=== PATIENT | male | born 1995 | race Caucasian/White ===

== ENCOUNTER 2020-06-18 19:57 | Emergency (ER) | payer OTHER ==
[2020-06-18] MEDS ORDERED: KETAMINE 40 MG in SODIUM CHLORIDE 0.9% 100ML 100 ML IVP STA (20:21)
--- NOTE | 2020-06-18 20:25 | ED Physician Documentation ---
PD HPI MHE - Stated complaint Stated Complaint: SI - Chief complaint Chief Complaint: MHE - History obtained from History obtained from: Patient - Additional information Additional information: 25-year-old gentleman who is active duty in the [employer] has had a tough year. 2 friends have , most recently his roommate the day before and he has been having a lot of trouble dealing with it. He is under no treatment, no counseling or medications. He has longstanding suicidal ideation, vague thoughts without specific plan. He denies drug use but does use alcohol daily. No withdrawal symptoms. No current plan. Review of Systems Ten Systems: 10 systems reviewed and negative Constitutional: denies: Fever, Chills Nose: denies: Rhinorrhea / runny nose, Congestion Throat: denies: Sore throat Cardiac: denies: Chest pain / pressure, Palpitations Respiratory: denies: Dyspnea, Cough PD PAST MEDICAL HISTORY - Past Medical History Past Medical History: Yes Psych: Depression - Past Surgical History Past Surgical History: No - Present Medications Home Medications: Ambulatory Orders Medication Instructions Recorded Confirmed LORazepam [Ativan] 1 mg PO QPM PRN #10 tablet 06/18/20 - Allergies Allergies/Adverse Reactions: Allergies Allergy/AdvReac Type Severity Reaction Status Date / Time No Known Drug Allergies Allergy Verified 06/18/20 20:08 - Social History Does the pt smoke?: Yes Smoking Status: Current every day smoker Does the pt drink ETOH?: Yes ETOH Use: Beer Does the pt have substance abuse?: No - Immunizations Immunizations are current?: Yes PD ED PE NORMAL - Vitals Vital signs reviewed: Yes - General General: Alert and oriented X 3, No acute distress - HEENT HEENT: PERRL, EOMI - Neck Neck: Supple, no meningeal sign, No bony TTP - Cardiac Cardiac: RRR, No murmur - Respiratory Respiratory: No respiratory distress, Clear bilaterally - Abdomen Abdomen: Normal bowel sounds, Soft, Non tender - Back Back: No CVA TTP, No spinal TTP - Derm Derm: Normal color, Warm and dry - Extremities Extremities: No edema, No calf tenderness / cord - Neuro Neuro: Alert and oriented X 3, No motor deficit, No sensory deficit, Normal speech Results - Vitals Vitals: Vital Signs - 24 hr 06/18/20 06/18/20 06/18/20 20:00 20:22 20:49 Temperature 36.4 C L 36.4 C L Heart Rate 84 84 80 Respiratory 18 18 18 Rate Blood Pressure 154/98 H 154/98 H 143/78 H O2 Saturation 98 98 98 Oxygen O2 Source Room air PD MEDICAL DECISION MAKING - ED course ED course: He presents with suicidal ideation but no plan, he contracts with me for safety. I did offer a potential transfer to [facility] for expedited inpatient care which he declined. There is no indication for involuntary assisted. We agreed on after discussion and after he contracted for safety was an infusion of ketamine here, then something to help him sleep when he because he is having trouble with that. He will follow-up with the [facility] for psychiatric care and counseling on Saturday. 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 I discussed the fact that they do have the option of compelling him for treatment at [facility] but I did not think that was not necessary based on his presenting complaints. He wanted us to keep him in the emergency department all night to make sure the house was safe, I discussed with him the that was not necessarily a great use of an emergency department bed if it was all night and he will try to arrange for [employer] watch. Departure - Departure Disposition: 01 Home, Self Care Clinical Impression: Suicidal ideation Depression Qualifiers: Depression Type: major depressive disorder Major depression recurrence: single episode Active/Remission status: currently active Major depression episode severity: moderate Qualified Code(s): F32.1 - Major depressive disorder, single episode, moderate Condition: Good Record reviewed to determine appropriate education?: Yes Instructions: ED Depression Prescriptions: LORazepam [Ativan] 1 mg PO QPM PRN #10 tablet PRN Reason: Insomnia Comments: Return if worsening or if you feel like you might ask on your suicidal ideation. Do not drink or drive tonight, do not drink with the lorazepam. Follow-up with the [facility] on Saturday for further evaluation and treatment, specifically psychiatric evaluation and initiation of counseling. Phone number for the mental health clinic on [facility] is [phone], call first thing Saturday.
[2020-06-18] MEDS ORDERED: KETAMINE 500 MG/10 ML VIAL ONE (20:39)
[2020-06-18] MEDS ORDERED: LORazepam 1 MG TABLET PO STA (21:30)
[2020-06-18 23:00] VITALS: BP 121/69
== END 2020-06-18 22:55 | disposition home or self-care (01) ==
LOC: ED 19:57
DX: R45.851 Suicidal ideations (principal); F17.200 Nicotine dependence, unspecified, uncomplicated; F32.1 Major depressive disorder, single episode, moderate
CPT/HCPCS: 96374; 99283; 99284; J8499